=== PATIENT | male | born 1975 | race Caucasian/White ===

== ENCOUNTER 2024-05-26 00:05 | Emergency (ER) | payer BC ==
[~2024-05-26] VITALS: Ht 182.9 cm; Wt 81.6 kg
[2024-05-26] MEDS ORDERED: LIDOCAINE 1% INJ 50 ML MDV IJ ONE (00:35)
[2024-05-26 01:23] VITALS: BP 128/65; O2SAT 97
== END 2024-05-26 01:24 | disposition home or self-care (01) ==
LOC: ER 00:17
DX: S61.210A Laceration without foreign body of right index finger without damage to nail, initial encounter (principal); Z95.2 Presence of prosthetic heart valve; Z88.8 Allergy status to other drugs, medicaments and biological substances; W26.0XXA Contact with knife, initial encounter; Y93.89 Activity, other specified; Y92.090 Kitchen in other non-institutional residence as the place of occurrence of the external cause; Y99.8 Other external cause status
CPT/HCPCS: 12001; 99282; J3490